=== PATIENT | female | born 1980 ===

== ENCOUNTER → 2021-04-01 | Outpatient (REF) ==
--- NOTE | 2021-04-02 03:38 | REP ---
INDICATION: PAIN COMPARISON: None. TECHNIQUE: AP, lateral, coned-down views of the lumbar spine. FINDINGS: Three views of the lumbosacral spine demonstrate satisfactory alignment and lordosis without acute fracture / compression injury or subluxation. Disc spaces are relatively well maintained and age-appropriate. IMPRESSION: 1. Age-appropriate lumbosacral spine radiograph series. <Electronically signed by Lb Langston > 04/02/21 8904
== END ==
LOC: M PLAIMG 12:55
PROVIDERS: ATTEND Internal Medicine
DX: M54.50 Low back pain, unspecified (principal)